=== PATIENT | female | born 1985 | race African-American/Black ===

== ENCOUNTER 2020-06-28 22:09 | Emergency (ER) | payer SELFPAY ==
--- NOTE | 2020-06-28 22:13 | NUR ---
PT BIBRA 84 FOR POSSIBLE SEIZURE FROM 7-11. PT LEFT WIHTOUT BEING SEEN. PT WALKED OUT STABLE GAIT. AOX4.
== END 2020-06-28 22:17 | disposition left against medical advice (07) ==
LOC: ER 22:13
DX: Z53.21 Procedure and treatment not carried out due to patient leaving prior to being seen by health care provider (principal)